=== PATIENT | female | born 1990 | race Two or more races ===

== ENCOUNTER 2019-03-23 11:10 | Emergency (ER) | payer SELFPAY ==
[~2019-03-23] VITALS: Ht 152.4 cm; Wt 59.0 kg
[2019-03-23 12:01] VITALS: BP 135/75
--- NOTE | 2019-03-23 12:50 | PHYS DOC ---
Past Medical History Past Medical History: No Pertinent History Past Surgical History: No Surgical History Alcohol Use: None Drug Use: None Adult General Chief Complaint Chief Complaint: FACE PAIN HPI HPI Patient is a 28 year old female who presents with the last 4 days patient states she has had left facial swelling around the left side of the mouth to the left cheek. Patient states the pain comes and goes but when it comes it is stabbing and causes pain to radiate up into the side of her left head. Patient states when the pain starts is 8 out of 10. Patient took a ibuprofen at 4:00 this morning. Review of Systems Review of Systems Constitutional: Denies fever or chills [] Musculoskeletal: Left facial swelling and pain. Denies back pain or joint pain [] Integument: Denies rash or skin lesions [] Neurologic: headache, denies focal weakness or sensory changes [] All other systems were reviewed and found to be within normal limits, except as documented in this note. Physical Exam Physical Exam Constitutional: Well developed, well nourished, no acute distress, non-toxic appearance. [] HENT: Normocephalic, atraumatic, bilateral external ears normal, oropharynx moist, no oral exudates, nose normal. Left upper broken tooth with red gumline and swelling. [] Eyes: PERRLA, EOMI, conjunctiva normal, no discharge. [] Skin: Left facial swelling. Warm, dry, no erythema, no rash. [] Neurologic: Alert and oriented X 3, normal motor function, normal sensory function, no focal deficits noted. [] Psychologic: Affect normal, judgement normal, mood normal. [] Current Patient Data Vital Signs Vital Signs Date Time Temp Pulse Resp B/P (MAP) Pulse Ox O2 Delivery O2 Flow Rate FiO2 03/23/19 12:01 98.8 84 16 135/75 (95) 98 Room Air 98.8 EKG EKG [] Radiology/Procedures Radiology/Procedures [] Course & Med Decision Making Course & Med Decision Making Patient is a 28 year old female who presents with the last 4 days patient states she has had left facial swelling around the left side of the mouth to the left cheek. Patient states the pain comes and goes but when it comes it is stabbing and causes pain to radiate up into the side of her left head. Patient states when the pain starts is 8 out of 10. Patient took a ibuprofen at 4:00 this morning. Patient denies nausea, vomiting, fevers, abdominal pain, dizziness, syncope, visual changes, numbness or tingling, chest pain, shortness of air. Vital signs within normal limits. Afebrile. Patient has a left upper broken tooth with gum line is reddened and swollen. No drainage from the area seen. Speaks in full clear sentences. Skin pink, warm, and dry. Patient is given Hydrocodone in the Emergency room. Follow up with a dentist as soon as possible. Dragon Disclaimer Dragon Disclaimer This electronic medical record was generated, in whole or in part, using a voice recognition dictation system. Departure Departure Impression: Primary Impression: Dental abscess Disposition: HOME, SELF-CARE Condition: STABLE Referrals: NO PCP (PCP) Patient Instructions: Dental Abscess Additional Instructions: Follow up with a dentist as soon as possible. Take medications with food and as prescribed. Scripts Hydrocodone Bit/Acetaminophen (HYDROCODONE-APAP 5-325 ) 1 Tab Tablet 1 TAB PO PRN Q6HRS PRN for PAIN, #10 TAB 0 Refills Prov: LINDY AMBROCIO APRN 03/23/19 Penicillin V Potassium (PENICILLIN V POTASSIUM) 500 Mg Tablet 1 TAB PO QID, #40 TAB Prov: LINDY AMBROCIO APRN 03/23/19 LINDY AMBROCIO APRN Mar 23, 2019 12:50
[2019-03-23] MEDS ORDERED: PENI500T PO (13:01)
[2019-03-23] MEDS ORDERED: HYDR-2761 PO (13:01)
== END 2019-03-23 13:18 | disposition home or self-care (01) ==
LOC: ER 11:10
DX: K04.7 Periapical abscess without sinus (principal)
CPT/HCPCS: 99283